=== PATIENT | female | born 1975 | race Caucasian/White ===

== ENCOUNTER 2018-11-14 12:35 | Emergency (ER) | payer BC ==
--- NOTE | 2018-11-14 14:00 | EDM.PDOC ---
ED HPI GENERAL MEDICAL PROBLEM - General Chief Complaint: ENT Problem Stated Complaint: POSSIBLE DOUBLE EAR INFECTION & SINUS PAIN Time Seen by Provider: 11/14/18 13:45 Source of Information: Reports: Patient History Limitations: Reports: No Limitations - History of Present Illness INITIAL COMMENTS - FREE TEXT/NARRATIVE: Alert pleasant 43 yo female presents with right sided sinus congestion and right ear pain with lightheadedness and facial pain for the last 2 weeks. Patient has tried numerous OTC medications with minimal improvement. Patient has been using Afrin nasal spray for the last 7 days. Patient has had chills and sweats with out documented fevers. Patient has fullness and anterior right sinuses. Patient has been using Sudafed, Tylenol and numerous OTC medications. Patient states symptoms started soon after returning form vacation in [place]. Patient is requesting antibiotic at this time. Bilateral Ear Pain Score (Numeric/FACES): 7 - Related Data Allergies Allergy/AdvReac Type Severity Reaction Status Date / Time amoxicillin Allergy Hives Verified 11/14/18 13:39 hydrocodone bitartrate Allergy Hallucinati Verified 11/14/18 13:39 [From Vicodin] ons Sulfa (Sulfonamide Allergy Hives Verified 11/14/18 13:39 Antibiotics) Home Meds: Home Meds Doxycycline Hyclate 100 mg PO BID 10 Days #20 capsule 11/14/18 [Rx] Escitalopram Oxalate 1 tab PO DAILY 11/14/18 [History] Loratadine [Claritin] 1 tab PO DAILY 11/14/18 [History] Past Medical History HEENT History: Reports: Allergic Rhinitis [employer] History: Reports: , Spontaneous Neurological History: Reports: Migraines Psychiatric History: Reports: Anxiety Endocrine/Metabolic History: Reports: Diabetes, Gestational - Past Surgical History GI Surgical History: Reports: Cholecystectomy Social & Family History - Tobacco Use Smoking Status *Q: Never Smoker - Recreational Drug Use Recreational Drug Use: No ED ROS ENT - Review of Systems Review Of Systems: ROS reveals no pertinent complaints other than HPI. ED EXAM, ENT - Physical Exam Exam: See Below Exam Limited By: No Limitations General Appearance: Alert, WD/WN, No Apparent Distress, Mild Distress Eye Exam: Bilateral Eye: EOMI, PERRL Ears: Normal External Exam, Normal Canal, Hearing Grossly Normal, TM Erythema, TM Fluid. No: Mastoid Swelling, Mastoid Tenderness, TM Bulging, TM Perforation Nose: Normal Inspection, Nasal Tenderness, Injected Turbinates, Other (pressure and pain over right maxillary sinus) Mouth/Throat: Normal Inspection, Normal Gums, Normal Lips, Normal Oropharynx, Normal Teeth, Pharyngeal Erythema (cobble stoning due to PND noted) Head: Atraumatic, Normocephalic Neck: Normal Inspection, Supple, Non-Tender, Full Range of Motion Respiratory/Chest: No Respiratory Distress, Lungs Clear, Normal Breath Sounds, No Accessory Muscle Use, Chest Non-Tender Cardiovascular: Normal Peripheral Pulses, Regular Rate, Rhythm, No Murmur GI/Abdominal: Normal Bowel Sounds, Soft Back: Normal Inspection, Full Range of Motion Extremities: Normal Inspection, Normal Range of Motion, Non-Tender, No Pedal Edema, Normal Capillary Refill Neurological: Alert, Oriented, CN II-XII Intact, Normal Cognition, Normal Gait, Normal Reflexes, No Motor/Sensory Deficits Psychiatric: Normal Affect, Normal Mood Skin: Warm, Dry, Intact, Normal Color, No Rash Course - Vital Signs Last Recorded V/S: Last Vital Signs Temp 36.3 C 11/14/18 13:38 Pulse 67 11/14/18 13:38 Resp 16 11/14/18 13:38 BP 114/68 11/14/18 13:38 Pulse Ox 98 11/14/18 13:38 Departure - Departure Time of Disposition: 14:15 Disposition: Home, Self-Care 01 Clinical Impression: Sinusitis, acute - Discharge Information Prescriptions: Doxycycline Hyclate 100 mg PO BID 10 Days #20 capsule Instructions: How to Perform a Sinus Rinse, Sinusitis, Adult Referrals: Constantino Vasquez MD [Primary Care Provider] - 3 Days Additional Instructions: 1. STOP Afrin only use BID x 3 days then off minimum of three day due to risk of rebound rhinitis due to medications. 2. Doxycycline 100mg BID x 10 days take tow dose this am then bid as directed until gone. 3. Ibuprofen 600-800mg every 6 hours with food for pain, swelling and inflammation. 4. Flonase nasal spray 2 spray each nostril every am and pm x 3 days then once daily for entire allergy season. 5. Continue Neti pot saline rinses with DISTILLED WATER ONLY. Every am and pm. 6. May use Tylenol 500-1000mg if needed for headache and pain 7. Symptoms should improve in 48-72 hours but may take longer due to rebound rhinitis due to afrin. 8. Increased fluid intake and rest.
== END 2018-11-14 14:15 | disposition home or self-care (01) ==
LOC: JP.ED 12:35
DX: J01.90 Acute sinusitis, unspecified (principal); F41.9 Anxiety disorder, unspecified; Z88.1 Allergy status to other antibiotic agents; Z88.2 Allergy status to sulfonamides; Z88.5 Allergy status to narcotic agent; Z79.899 Other long term (current) drug therapy
CPT/HCPCS: 99283